=== PATIENT | female | born 1985 | race Caucasian/White ===

== ENCOUNTER 2016-09-26 13:34 | Outpatient (CLI) ==
[2016-04-09 19:31] VITALS: BMI 31.4
== END 2016-09-26 13:35 | disposition home or self-care (01) ==
LOC: LAB 13:34
PROVIDERS: ATTEND Physician Assistant
DX: K63.3 Ulcer of intestine (principal)
CPT/HCPCS: 36415; 82784; 83516

== ENCOUNTER 2016-10-02 08:42 | Outpatient (CLI) ==
[2016-04-09 19:31] VITALS: BMI 31.4
--- NOTE | 2016-10-02 11:38 | DI ---
EXAM: Small bowel follow-through. History: Abdominal pain, intussusception. Technique: Parquet [employer] Helper film was obtained. Patient was then given and oral gastrographin and multiple spot films of the small bowel were obtained. The gastrographin reached the colon at 1 hour and 30 minut es. Findings: The course and caliber of the small bowel is within normal limits. No small bowel wall t hickening. No small bowel obstruction. No extravasation of contrast material. Impression: Normal small bowel follow-through.
== END 2016-10-02 08:43 | disposition home or self-care (01) ==
LOC: RAD 08:42
PROVIDERS: ATTEND Internal Medicine Gastroenterology
DX: K56.1 Intussusception (principal); R10.9 Unspecified abdominal pain

== ENCOUNTER 2016-10-23 08:52 | Outpatient (CLI) ==
[2016-04-09 19:31] VITALS: BMI 31.4
--- NOTE | 2016-10-23 14:15 | NM ---
EXAM: Gastric emptying study HISTORY: Abdominal pain, nausea and vomiting COMPARISON: None. TECHNIQUE: Patient was given 2.1 mCi of technetium 99m sulfur colloid per oral mixed in scrambled eg gs. Anterior and posterior scintigraphic images of the left upper abdomen were then obtained up to 4 hours interval. Region of interest was outlined. Gastric emptying was calculated. Time activity curve was acquired. The FINDINGS: Gastric emptying half-time is is approximately 100 minutes. This is normal. At 1 hour, 2 hours, 3 hours and 4 hours interval, patient has emptied 21%, 49%, 90% and 96% of the g astric contents respectively. IMPRESSION: Normal study
== END 2016-10-23 08:53 | disposition home or self-care (01) ==
LOC: RAD 08:52
PROVIDERS: ATTEND Physician Assistant
DX: R10.9 Unspecified abdominal pain (principal); R11.2 Nausea with vomiting, unspecified

== ENCOUNTER 2017-12-23 14:53 | Outpatient (CLI) ==
[2016-04-09 19:31] VITALS: BMI 31.4
== END 2017-12-23 14:54 | disposition home or self-care (01) ==
LOC: LAB 14:53
PROVIDERS: ATTEND Physician Assistant
DX: R42 Dizziness and giddiness (principal)
CPT/HCPCS: 36415; 80053; 82728; 83540; 83550; 84443; 85025

== ENCOUNTER 2018-04-10 16:28 | Outpatient (CLI) ==
[2016-04-09 19:31] VITALS: BMI 31.4
== END 2018-04-10 16:29 | disposition home or self-care (01) ==
LOC: LAB 16:28
PROVIDERS: ATTEND Psychiatry & Neurology Neurology
DX: G40.909 Epilepsy, unspecified, not intractable, without status epilepticus (principal); G43.719 Chronic migraine without aura, intractable, without status migrainosus; M79.7 Fibromyalgia; R53.83 Other fatigue; R10.2 Pelvic and perineal pain
CPT/HCPCS: 36415; 80053; 82607; 82746; 84443; 84702; 85025; 86038

== ENCOUNTER 2018-04-13 15:33 | Outpatient (CLI) ==
[2016-04-09 19:31] VITALS: BMI 31.4
== END 2018-04-13 15:34 | disposition home or self-care (01) ==
LOC: LAB 15:33
PROVIDERS: ATTEND Physician Assistant
DX: R10.2 Pelvic and perineal pain (principal); D72.829 Elevated white blood cell count, unspecified
CPT/HCPCS: 36415; 80053; 84702; 85025

== ENCOUNTER 2018-04-23 10:16 | Emergency (ER) ==
[2018-04-23 10:29] VITALS: BMI 33.6
--- NOTE | 2018-04-23 10:39 | ED.PDOC ---
General ED Provider: Dr. AASHISH HUNTER Chief Complaint: Abdominal Pain Stated Complaint: Patient is a 32 y/o cauc female presents with CC Pain in Lt lower abdomen and pelvic region. Hx of Ovarian Cyst. Just finised MP. Scheduled for consult [facility] for consult regarding her pelvic pain consideration of obtaining a hysterectomy. Called [facility] but has no openings. No bleeding or discharge. Pain intermittent. Time Seen by Physician: 11:35 Mode of Arrival: Walk-In Information Source: Patient Exam Limitations: No limitations Primary Care Provider: FAMILIA MONET Nursing and Triage Documentation Reviewed and Agree: Yes Does patient meet sepsis criteria?: No System Inflammatory Response Syndrome: Not Applicable Sepsis Protocol: For patient's 13 years and over: Temp is 96.8 and below OR 101 and greater Pulse >90 BPM Resp >20/minute Acutely Altered Mental Status Are patient's symptoms suggestive of a new infection, such as: -Pneumonia -Skin, Soft Tissue -Endocarditis -UTI -Bone, Joint Infection -Implantable Device -Acute Abdominal Infection -Wound Infection -Meningitis -Blood Stream Catheter Infection -Unknown Review of Systems - Review Of Systems Constitutional: Reports: No symptoms Eyes: Reports: No symptoms Ears, Nose, Mouth, Throat: Reports: No symptoms Respiratory: Reports: No symptoms Cardiac: Reports: No symptoms GI: Reports: No symptoms : Reports: Pain, Other (Pelvic pain ) Musculoskeletal: Reports: No symptoms Skin: Reports: No symptoms Neurological: Reports: No symptoms Endocrine: Reports: No symptoms Hematologic/Lymphatic: Reports: No symptoms All Other Systems: Reviewed and Negative Past Medical History - Past Medical History Previously Healthy: Yes Endocrine: Reports: None Cardiovascular: Reports: None Respiratory: Reports: None Hematological: Reports: None Gastrointestinal: Reports: None Genitourinary: Reports: None Neuro/Psych: Reports: None Musculoskeletal: Reports: None Cancer: Reports: None Last Menstrual Period: 2 weeks - Surgical History General Surgical History: Reports: None - Family History Family History: Reports: None - Social History Smoking Status: Current every day smoker, Light tobacco smoker Hx Substance Use: No Alcohol Screening: None Physical Exam - Physical Exam Appearance: Well-appearing, Obese Ill-appearing: None Pain Distress: Mild Eyes: JAYSON, EOMI, Conjunctiva clear ENT: Ears normal, Nose normal, Oropharynx normal Neck: Supple Respiratory: Airway patent, Breath sounds clear, Breath sounds equal, Respirations nonlabored Cardiovascular: RRR, Pulses normal, No rub, No murmur GI/: Soft, Tender, Bowel sounds hypoactive Re-Evaluation - Re-Evaluation Time of Re-Evaluation: 12:30 Status: Improved Vital Signs Stable: Yes Appearance: NAD Lungs: Clear Skin: Warm and Dry Neuro: Alert and Oriented X3 CV: RRR Additional Comments: REsults of lab reviewed Critical Care Note - Critical Care Note Total Time (mins): 0 Course - Course Hematology/Chemistry: 04/23/18 11:30 04/23/18 11:30 Orders, Labs, Meds: Lab Review 04/23/18 04/23/18 04/23/18 11:30 11:30 11:50 WBC 8.65 RBC 4.32 Hgb 12.5 Hct 37.6 MCV 87.0 MCH 28.9 MCHC 33.2 RDW Coeff of Ray 13.6 Plt Count 268 Immature Gran % (Auto) 0.2 Neut % (Auto) 66.8 Lymph % (Auto) 22.1 [place] % (Auto) 6.4 Eos % (Auto) 3.7 Baso % (Auto) 0.8 Immature Gran # (Auto) 0.0 Neut # (Auto) 5.8 Lymph # (Auto) 1.9 [place] # (Auto) 0.6 Eos # (Auto) 0.3 Baso # (Auto) 0.1 Sodium 139.4 Potassium 4.15 Chloride 109.6 H Carbon Dioxide 23.9 Anion Gap 10.05 BUN 9.9 Creatinine 0.83 Estimated GFR (MDRD) 79.00 BUN/Creatinine Ratio 11.92 Glucose 97.3 Calcium 9.22 Total Bilirubin 0.31 AST 32.4 ALT 26.0 Alkaline Phosphatase 36.5 L Total Protein 8.00 Albumin 4.35 Globulin 3.65 Albumin/Globulin Ratio 1.19 Urine Color Yellow Urine Clarity Clear Urine pH 7.0 Ur Specific [place] 1.025 Urine Protein Trace Urine Glucose (UA) Negative Urine Ketones Negative Urine Blood 1+ Urine Nitrite Negative Urine Bilirubin Negative Urine Urobilinogen 0.2 Ur Leukocyte Esterase Negative Urine Microscopic RBC 5-10 Ur Squamous Epith Cells 2-5 Urine Mucus 4+ Urine Opiates Screen Ur Oxycodone Screen Urine Methadone Screen Ur Propoxyphene Screen Ur Barbiturates Screen U Tricyclic Antidepress Ur Phencyclidine Scrn Ur Amphetamine Screen U Methamphetamines Scrn U Benzodiazepines Scrn Urine Cocaine Screen U Cannabinoids Screen 04/23/18 11:50 WBC RBC Hgb Hct MCV MCH MCHC RDW Coeff of Ray Plt Count Immature Gran % (Auto) Neut % (Auto) Lymph % (Auto) [place] % (Auto) Eos % (Auto) Baso % (Auto) Immature Gran # (Auto) Neut # (Auto) Lymph # (Auto) [place] # (Auto) Eos # (Auto) Baso # (Auto) Sodium Potassium Chloride Carbon Dioxide Anion Gap BUN Creatinine Estimated GFR (MDRD) BUN/Creatinine Ratio Glucose Calcium Total Bilirubin AST ALT Alkaline Phosphatase Total Protein Albumin Globulin Albumin/Globulin Ratio Urine Color Urine Clarity Urine pH Ur Specific [place] Urine Protein Urine Glucose (UA) Urine Ketones Urine Blood Urine Nitrite Urine Bilirubin Urine Urobilinogen Ur Leukocyte Esterase Urine Microscopic RBC Ur Squamous Epith Cells Urine Mucus Urine Opiates Screen Negative Ur Oxycodone Screen Negative Urine Methadone Screen Negative Ur Propoxyphene Screen Negative Ur Barbiturates Screen Negative U Tricyclic Antidepress Negative Ur Phencyclidine Scrn Negative Ur Amphetamine Screen Negative U Methamphetamines Scrn Negative U Benzodiazepines Scrn Negative Urine Cocaine Screen Negative U Cannabinoids Screen Negative Orders Category Date Time Status CBC W/ AUTO DIFF Stat LAB 04/23/18 11:30 Completed CMP [COMPREHENSIVE METABOLIC PANEL] Stat LAB 04/23/18 11:30 Completed UA [URINALYSIS C & S IF INDICATED] Stat LAB 04/23/18 11:50 Completed URINE DRUG SCREEN (RAPID FOR ED) [DRUG SCREEN, URINE, LAB 04/23/18 11:50 Completed RAPID] Stat Hydrocodone Bit/Acetaminophen [Dewitt 7.5-325] MEDS 04/23/18 11:00 Discontinued 1 tab PO ONCE STA ULTRASOUND PELVIS GORMAN VAGINAL/NONOB [U/S PELVIS GORMAN RADS 04/23/18 11:14 Completed VAGINAL/NON OB] Stat Medications Discontinued Medications Generic Name Dose Route Start Last Admin Trade Name Freq PRN Reason Stop Dose Admin Hydrocodone Bitart/Acetaminophen 1 tab 04/23/18 11:00 04/23/18 11:14 Dewitt 7.5-325 PO 04/23/18 11:01 1 tab ONCE STA Administration Vital Signs: Temp Pulse Resp BP Pulse Ox 04/23/18 10:17 98.1 F 103 H 20 137/93 H 98 Departure - Departure Time of Disposition: 12:55 Disposition: HOME SELF-CARE Discharge Problem: Right ovarian cyst, Rupture of ovarian cyst Instructions: Ruptured Ovarian Cyst (ED) Condition: Good Pt referred to PMD for follow-up: Yes IPMP verified?: Yes Additional Instructions: Rest Maintain good oral fluid intake Take Ibuprofen 600 mg every 6 hrs for pain reduction May take Dewitt as prescribed every 6 hrs for pain unrelieved by Ibuprofen If Symptoms worsen return to ER. Follow up with [facility] in [place] as planned Prescriptions: Hydrocodone Bit/Acetaminophen [Dewitt 5-325] 1 each PO Q6HR PRN #10 tablet PRN Reason: pelvic pain Doxycycline Hyclate 100 mg PO BID #14 tablet Allergies/Adverse Reactions: Allergies ketorolac tromethamine [From Toradol] Adverse Reaction (Verified 04/23/18 10:24) ondansetron HCl [From Zofran] Adverse Reaction (Verified 04/23/18 10:24) Penicillins Adverse Reaction (Verified 04/23/18 10:24) Home Medications: Ambulatory Orders Doxycycline Hyclate 100 mg PO BID #14 tablet 04/23/18 Hydrocodone Bit/Acetaminophen [Dewitt 5-325] 1 each PO Q6HR PRN #10 tablet Lamotrigine [Lamictal Xr] 50 mg PO DAILY 04/23/18 Quetiapine Fumarate [Seroquel] 100 mg PO BEDTIME 04/23/18 Topiramate [Topamax] 50 mg PO BID 04/23/18 Complaint Exam - Complaint/Exam Patient Complains of: Reports: Pain Onset/Duration: 2 days Symptoms Are: Still present Timing: Constant Initial Severity: Moderate Current Severity: Moderate Location of Pain: Reports: Left, Suprapubic Character: Reports: Sharp, Colicky Aggravating: Reports: Movement Alleviating: Reports: None Associated Signs and Symptoms: Reports: Nausea, Abdominal Pain (Pelvic Pain) : 4 ED Physician Progress Note ED Physician Progress Note: [] 04/23/18 11:47 Initially Lab unsuccessful in obtaining specimen. New lab now drawn. US pelvis ordered
[2018-04-23] MEDS ORDERED: NORCO 7.5-325 PO STA (11:00)
--- NOTE | 2018-04-23 12:43 | US ---
EXAM: Pelvic ultrasound HISTORY: Pain, history left ovarian cyst COMPARISON: None TECHNIQUE: Transvaginal pelvic ultrasound was performed FINDINGS: Uterus measures 5.0 x 5.3 x 9.3 cm. Uterus is retroflexed 1.6 cm. Small region of uterin e myometrial heterogeneity likely within the range of normal variation. Endometrium is top normal in thickness measuring 1.5 cm. Right ovary measures 2.2 x 2.1 x 2.9 cm. Left ovary measures 2.1 x 1.9 x 3.6 cm. Ovaries normal in echogenicity. Normal Doppler flow in right and left ovary. There is a right ovarian cyst measuring 1.2 cm with internal echoes. Free fluid identified in the cul-de-sac. IMPRESSION: 1. Top normal endometrial thickness at 1.5 cm 2. Mildly complex right ovarian cyst measuring 1.2 cm. Otherwise unremarkable appearance of the ova omero. Recommend sonographic follow-up 6 weeks for reevaluation.
[2018-04-23 13:13] VITALS: BP 105/65; TEMP 97.8
== END 2018-04-23 13:29 | disposition home or self-care (01) ==
LOC: ED 10:16
DX: R10.32 Left lower quadrant pain (principal); N83.201 Unspecified ovarian cyst, right side; R11.0 Nausea; E66.9 Obesity, unspecified; Z72.0 Tobacco use
CPT/HCPCS: 36415; 80053; 80306; 81001; 85025; 99283